=== PATIENT | female | born 1975 | race Caucasian/White ===

== ENCOUNTER → 2017-07-02 | Outpatient (CLI) | payer OTHER ==
[~2017-07-02] MED LIST: CALC500C3; PRENTAB26 PO; ZNTT/150 PO
--- NOTE | 2017-07-03 13:44 | MAMMOGRAPHY REPORT ---
BILATERAL DIGITAL SCREENING MAMMOGRAM TOMOSYNTHESIS WITH CAD: 07/02/2017 CLINICAL HISTORY: Routine screening. TECHNIQUE: Breast tomosynthesis in addition to standard 2D mammography was performed. Current study was also evaluated with a Computer Aided Detection (CAD) system. COMPARISON: Comparison is made to exam dated: 05/16/2016 mammogram - [facility]. BREAST COMPOSITION: The tissue of both breasts is extremely dense, which lowers the sensitivity of m ammography. FINDINGS: No suspicious masses, calcifications, or areas of architectural distortion are noted in ei ther breast. There has been no significant interval change compared to prior exams. IMPRESSION: ACR BI-RADS CATEGORY 1: NEGATIVE There is no mammographic evidence of malignancy. A 1 year screening mammogram is recommended. The pa tient will receive written notification of the results. Approximately 10% of breast cancers are not detected with mammography. A negative mammographic report should not delay biopsy if a clinically suggestive mass is present. Angelia Hong M.D. ah/:07/03/2017 07:32:20 Attorney At Law: Marian OCONNOR(Christine)(M), [facility] letter sent: Normal 1/2 BI-RADS Code: ACR BI-RADS Category 1: Negative
== END | disposition home or self-care (01) ==
LOC: C.MAMM 17:21
PROVIDERS: ATTEND Obstetrics & Gynecology
DX: Z12.31 Encounter for screening mammogram for malignant neoplasm of breast (principal)

== ENCOUNTER → 2017-10-24 | Outpatient (CLI) | payer OTHER ==
[~2017-10-24] MED LIST changes: +RANI150T85 PO; -ZNTT/150 PO
== END | disposition home or self-care (01) ==
LOC: C.LABSPEC 14:38
PROVIDERS: ATTEND Obstetrics & Gynecology
DX: N76.1 Subacute and chronic vaginitis (principal)

== ENCOUNTER → 2017-10-24 | Outpatient (CLI) | payer OTHER ==
[~2017-10-24] MED LIST changes: +AMOX500C3 PO; +ERYOPO OPR; +FEXO1TAB49 PO; +MULT-506 PO
== END | disposition home or self-care (01) ==
LOC: C.PAPS 13:46
PROVIDERS: ATTEND Obstetrics & Gynecology
DX: Z01.419 Encounter for gynecological examination (general) (routine) without abnormal findings (principal)

== ENCOUNTER 2017-10-30 23:38 | Emergency (ER) | payer OTHER ==
[~2017-10-30] VITALS: Ht 172.7 cm; Wt 62.0 kg
[~2017-10-30 23:38] MED LIST changes: -AMOX500C3 PO; -ERYOPO OPR; -FEXO1TAB49 PO; -MULT-506 PO
[2017-10-30 23:41] VITALS: TEMP 36.7; Ht 172.7 cm; Wt 62.0 kg
[2017-10-30] MEDS ORDERED: PROPARACAINE HCL 0.5% OP SOLN 15 ML BTL ONE (23:45)
--- NOTE | 2017-10-30 23:50 | EMERGENCY ROOM VISIT NOTE ---
History First contact with patient: 23:44 Chief Complaint: EYE ASSESSMENT Stated Complaint: R-EYE PAIN,SOMETHIING IN IT History of Present Illness The patient is a 42 year old female who presents to the Emergency Room via private vehicle with complaints of "right eye, something in it". The patient states that she woke up from sleep just prior to arrival noting right eye pain. She feels as though something may be in the eye. She rates the pain is a 7/ 10. She is tearing. Her tetanus is up-to-date. She denies any trauma or injury to the eye. She does not wear contacts. She notes the eye is watering with minimal vision change but otherwise okay vision. Review of Systems A complete 6-point Review of Systems was discussed with the patient, with pertinent positives and negatives listed in the History of Present Illness. All remaining Review of Systems questions can be considered negative unless otherwise specified. Past Medical/Surgical History Noncontributory. Family History Noncontributory. Social History Smoking Status: Never Smoker Alcohol Use: none Marital Status: Housing Status: lives with family Occupation Status: employed Current/Historical Medications Scheduled Amoxicillin (Amoxil), 500 MG PO BID Erythromycin Opth (Erythromycin Opth), 1 CM OPR Q6 Fexofenadine Hcl (Talya Allergy), 180 MG PO BID Multivitamin (Multivitamin), 1 TAB PO DAILY Ranitidine (Zantac), 150 MG PO DAILY Physical Exam Vital Signs Date Time Temp Pulse Resp B/P (MAP) Pulse Ox O2 Delivery O2 Flow Rate FiO2 10/31/17 00:37 65 20 135/80 98 10/30/17 23:41 36.7 63 20 144/84 98 Room Air Physical Exam VITAL SIGNS - Vital signs and nursing notes were reviewed. Stable. Afebrile. GENERAL -42-year-old female appearing her stated age. Communicates well with provider and answers questions appropriately. HEAD - Normocephalic, Atraumatic. No Hernandez's Sign or Raccoon's Eyes. No depressed skull fractures palpable. EYES - PERRL with EOMI bilaterally. Sclera without noticeable foreign body or excoriations. No injection noted in the R eye. Without subconjunctival hemorrhage. Palpebral conjunctiva pink and moist with no injection or discharge noted. EARS - No deformities of external structures noted on gross examination bilaterally. Handle of malleus, umbo, cone of light, pars tensa/flaccid all easily visualized. NOSE - Midline and without cyanosis. Without discharge. MOUTH/OROPHARYNX - Without perioral cyanosis. An Automated Tonometer was utilized to obtain bilateral orbital pressures. The pressures in the LEFT and RIGHT eye were both in the range of 10-15. Patient tolerated the procedure well and no complications were met. Slit Lamp Examination was performed of the right eye(s). Alcaine drops were applied to the affected eye(s) for proper anesthetization. The affected eye(s) were stained with Fluorescein stain to precipitate adequate visualization of any conjunctival/scleral excoriations or ulcers. The patient's face was comfortably rested on the chin guard of the slit lamp apparatus. The lights were dimmed and the affected eye(s) were thoroughly examined under microscopy using the blue light. A small punctate superficial uptake was present within the right eye predominantly at the superior medial border of the cornea. Consistent with superficial punctate keratitis. No dendritic lesion. Negative Oswaldo sign. Additionally, the eye(s) were examined under microscopy using the regular light. Patient tolerated the procedure well and no complications were met. The eyelid on the right was also everted without difficulty and was within normal limits. Medical Decision & Procedures Medications Administered Medications (Trade) Dose Ordered Sig/Britton Route Start Time Stop Time Status Last Admin Dose Admin Proparacaine HCl (Alcaine 0.5% Oph Soln) 225 drops STK-MED ONCE .ROUTE 10/30/17 23:45 10/30/17 23:46 DC 10/31/17 00:13 225 DROPS Erythromycin (Erythromycin Oph Oint) 1 appln NOW STAT OP 10/31/17 00:25 10/31/17 00:26 DC 10/31/17 00:37 1 APPLN Medical Decision Patient was seen and evaluated as above in room A11. Review was performed of nursing notes and vital signs. After obtaining a thorough history and physical examination the above work up was performed. She presents with a sensation of something in the right eye. Visual acuity was obtained. No significant change with visual acuity. I did elect to slit-lamp stain the eye and a superficial punctate keratitis was noted. She has no chemical exposure, excessive sun exposure or other irritants. I question if this could be from perhaps allergies and from rubbing the eye causing irritation. No retained foreign body noted. She will be given erythromycin and she is to follow with her eye doctor tomorrow. She declined pain medication. She appeared stable for outpatient management. Pressures within normal limits. The patient was educated upon management, had questions answered prior to discharge, and was discharged home in good condition. In the evaluation and treatment of this patient, the following differential diagnoses were considered: Corneal Abrasion, Conjunctivitis, Eye Contusion, Globe Injury, Orbital Floor Injury (Blowout Fracture), Corneal Ulcer, Keratitis , Herpes Zoster Opthalmic, Blepharitis, Orbital Cellulitis, Iritis, Scleritis/ Episcleritis, Uveitis, Temporal Arteritis, Subconjunctival Hemorrhage. Impression Primary Impression: Acute right eye pain Additional Impression: Superficial punctate keratitis of right eye Departure Information Dispostion Home / Self-Care Condition GOOD Prescriptions Erythromycin Opth (ERYTHROMYCIN OPTH) 12 Appln/3.5 Gm Oint 1 CM OPR Q6 for 7 Days, #1 TUBE Prov: Deyvi Carlson PA-C 10/31/17 Referrals RV. Camacho MD (PCP) Reddy Rodriguez D.O. Patient Instructions My [facility] Additional Instructions You have been treated in the Emergency Department for corneal irritation, consistent with a superficial punctate keratitis. You were prescribed Erythromycin to be used every 6 hours for 7 days. This is an antibiotic. Stop this medication and contact a medical provider if you were to develop any significant adverse side effects including: wheezing, shortness of breath, passing out, vomiting, or a diffuse rash. Always take antibiotics as directed and COMPLETE the ENTIRE course regardless of the improvement of your symptoms. For pain control, you can use the following [id number] medicines: - Regular strength (325mg/tab) Tylenol (acetaminophen) 2 tabs every 4-6 hours as needed. Do not exceed 12 tablets in a 24 hour period. Avoid taking more than 3 grams (3000 mg) of Tylenol per day. This includes any other sources of acetaminophen you may take on a regular basis. - Regular strength (200 mg/tab) Advil (ibuprofen) 1-2 tabs every 4-6 hours as needed. Do not exceed a dose of 3200 mg per day. Avoid rubbing your eyes for the next few days as this can cause irritation. Wear sunglasses when outside to help minimize your pain. You should relax in a quiet, dark room to help minimize your symptoms. You should seek evaluation of your eye pain by an forms analyst/online content developer following your visit to the Emergency Department. The Emergency Department is not capable of treating optic issues long-term. You should call your forms analyst/online content developer as soon as possible to make an appointment for evaluation of your follow-up care. Return to the emergency department if you develop the following symptoms despite treatment course outlined above: blurry vision, loss of vision, fever, intractable pain, increased redness, swelling, or purulent discharge. Problem Qualifiers
[2017-10-31] MEDS ORDERED: AMOX500C3 PO (00:01)
[2017-10-31] MEDS ORDERED: FEXO1TAB49 PO (00:01)
[2017-10-31] MEDS ORDERED: MULT-506 PO (00:01)
[2017-10-31] MEDS ORDERED: ERYTHROMYCIN OP OINT 5 MG/GM 3.5 GM TUBE OP STA (00:25)
[2017-10-31] MEDS ORDERED: ERYOPO OPR (00:32)
[2017-10-31 00:37] VITALS: BP 135/80; PULSE 65; O2SAT 98
== END 2017-10-31 00:39 | disposition home or self-care (01) ==
LOC: C.EDB 23:39 → C.EDA 10-31 00:39
DX: H57.11 Ocular pain, right eye (principal); H16.141 Punctate keratitis, right eye; Z79.899 Other long term (current) drug therapy